=== PATIENT | female | born 1945 | race Hispanic/Latino ===

== ENCOUNTER 2016-07-14 08:33 | Inpatient (IN) | payer MEDICARE ==
[2016-07-07 11:17] LABS: Basophils % (Auto) 0.9 % (0.0-1.8); Eosinophils % (Auto) 1.4 % (0.0-4.3); Hematocrit 37.9 % (30.3-42.9); Hemoglobin 12.4 gm/dl (10.1-14.3); Mean Corpuscular HGB Conc 33 % (30-34); Mean Corpuscular Hemoglobin 29 pg (28-32); Mean Corpuscular Volume 88 fl (79-97); Platelet Count 250 K/mm3 (140-440); Red Blood Count 4.28 M/mm3 (3.65-5.03); Red Cell Distribution Width 14.9 % (13.2-15.2); White Blood Count 6.5 K/mm3 (4.5-11.0)
--- NOTE | 2016-07-07 11:19 | Anesthesia Consultation ---
Anesthesia Consult and Med Hx Date of service: 07/07/16 - Airway Anesthetic Teeth Evaluation: Good ROM Head & Neck: Adequate Mental/Hyoid Distance: Adequate Mallampati Class: Class III Intubation Access Assessment: Possibly Difficult - Pulmonary Exam CTA: Yes - Cardiac Exam Cardiac Exam: RRR - Pre-Operative Health Status ASA Pre-Surgery Classification: ASA3 Proposed Anesthetic Plan: Epidural, IV Sedation, Spinal - Pre-Anesthesia Comment Pre-Anesthesia Comments: cellulitis, arthiritis, nueropathy bilateral feet - Pulmonary Hx Smoking: Yes (QUIT ) Hx Respiratory Symptoms: Yes (cough, no fever ) SOB: Yes - Endocrine Hx Thyroid Disease: Yes Hx Hypothyroidism: Yes - Other Systems Hx Cancer: Yes (HX Breast CA, lumpectomy 2005 ) Hx Obesity: Yes
[2016-07-07 11:33] LABS: Albumin 3.6 g/dL (3.9-5); Bilirubin,Total 0.3 mg/dL (0.1-1.2); Calcium 8.4 mg/dL (8.4-10.2); Chloride 102.3 mmol/L (98-107); Potassium 4.6 mmol/L (3.6-5.0); Total Protein 7.3 g/dL (6.3-8.2)
--- NOTE | 2016-07-13 14:52 | History and Physical Report ---
History of Present Illness Date of examination: 07/13/16 Date of admission: 07/14/16 Chief complaint: Painful limitation of movement right knee, difficulty attending to activities of daily living, been treated symptomatically. I symptoms persisted she is being admitted for elective total knee arthroplasty. Past History Past Medical History: arthritis, hyperthyroidism Medications and Allergies Allergies Allergy/AdvReac Type Severity Reaction Status Date / Time adhesive Allergy Rash Verified 05/09/13 23:30 ceftriaxone sodium Allergy Shortness Verified 05/09/13 23:30 [From Rocephin] of Breath lorazepam [From Ativan] Allergy HALLUCINATI Verified 07/05/16 10:41 ONS vancomycin Allergy Swelling Verified 07/07/16 11:17 Home Medications Medication Instructions Recorded Confirmed Last Taken Type Aspirin [Aspirin BABY CHEW TAB] 81 mg PO DAILY 05/09/13 07/07/16 05/09/13 09:00 History Betamethasone/Propylene Glyc 1 dose TRANSDERMA PRN PRN 05/09/13 07/07/16 09:00 History [Diprolene 0.05%] Celecoxib [Celebrex] 200 mg PO BID 05/09/13 07/07/16 05/09/13 09:00 History Levothyroxine [Synthroid] 0.15 mg PO DAILY 05/09/13 07/07/16 05/08/13 20:00 History Magnesium 250 mg PO BID 05/09/13 07/07/16 05/09/13 09:00 History Potassium Gluconate 55 mg PO BID 05/09/13 07/07/16 05/09/13 09:00 History Pregabalin [Lyrica] 100 mg PO BID 05/09/13 07/07/16 05/09/13 09:00 History Raloxifene HCl [Evista] 60 mg PO QAM 05/09/13 07/07/16 05/09/13 09:00 History Vit C/Ascorbate Ca/Ascorb Sod 500 mg PO QAM 05/09/13 07/07/16 05/09/13 09:00 History [Vitamin C 500 mg/15 ml Liquid] Betamethasone Dipropionate 15 gm TP PRN PRN 07/07/16 07/07/16 Unknown History [Betamethasone Dipropionate 0.05% Cream] Cholecalciferol (Vitamin D3) 2,000 unit PO QDAY 07/07/16 07/07/16 Unknown History [Vitamin D3] Lactobacillus Combination No.8 2 tab PO DAILY 07/07/16 07/07/16 Unknown History [Adult Probiotic] Papaya [Papaya Enzyme] 1 each PO PRN PRN 07/07/16 07/07/16 Unknown History Ropinirole HCl [Requip] 0.5 mg PO BID 07/07/16 07/07/16 Unknown History Travoprost (Benzalkonium) 1 drop INTRAOCULA QPM 07/07/16 07/07/16 Unknown History [Travoprost 0.004% Eye Drop] Active Meds: Active Medications Famotidine (Pepcid) 20 mg PO PREOP NR Stop: 07/14/16 23:59 Lactated Ringer's (Lactated Ringers) 1,000 mls @ 42 mls/hr IV DIRECT ARMANDO Review of Systems All systems: negative Exam - Constitutional Vitals: Temp Pulse Resp BP Pulse Ox 97.5 F L 84 20 150/90 07/07/16 10:45 07/07/16 10:45 07/07/16 10:45 07/07/16 10:45 General appearance: Present: no acute distress, well-nourished - EENT Eyes: Present: PERRL ENT: hearing intact, clear oral mucosa - Neck Neck: Present: supple, normal ROM - Respiratory Respiratory effort: normal Respiratory: bilateral: CTA - Cardiovascular Heart Sounds: Present: S1 & S2. Absent: rub, click - Extremities Extremities: pulses symmetrical, No edema, abnormal (Right knee with a 5 varus , swelling no effusion. Crepitus with range of motion. Collateral ligaments are stable, range of motion flexion 90, extension -3. No calf pain or tenderness, quad strength grade 5, no neurovascular deficit.) Peripheral Pulses: within normal limits - Abdominal General gastrointestinal: Present: soft, non-tender, non-distended, normal bowel sounds Female genitourinary: Present: normal - Integumentary Integumentary: Present: clear, warm, dry - Musculoskeletal Musculoskeletal: gait normal, strength equal bilaterally - Psychiatric Psychiatric: appropriate mood/affect, intact judgment & insight - Neurologic Neurologic: CNII-XII intact, moves all extremities Results - Labs CBC & Chem 7: 07/07/16 10:45 07/07/16 10:45 Assessment and Plan - Patient Problems (1) Degenerative arthritis of right knee Status: Chronic Qualifiers: Osteoarthritis type: primary Qualified Code(s): M17.11 - Unilateral primary osteoarthritis, right knee Plan to address problem: ttotally arthroplasty right knee
[~2016-07-14 08:33] MED LIST: NACL 0.9% IR ONE; NEOSPORIN GU IR ONE; NEURONTIN PO NR; PEPCID PO NR; VANCOMYCIN/NS 1 GM/250 ML 1 GM/250 ML BAG IV NR; VERSED IV NR; WATER FOR IRRIG STERILE IR ONE
[2016-07-14] MEDS: LACTATED RINGERS 1,000 ML IV SCH (09:21)
[2016-07-14] MEDS ORDERED: MARCAINE 0.25% INFILTRATI ONE (09:44)
[2016-07-14] MEDS ORDERED: MARCAINE 0.5% INFILTRATI ONE (10:00)
[2016-07-14] MEDS ORDERED: DIPRIVAN 10 MG/ML IV ONE ×2 (10:17→11:44)
[2016-07-14] MEDS ORDERED: XYLOCAINE MPF 2% ONE ×3 (10:17→11:51)
[2016-07-14] MEDS ORDERED: DECADRON IV ONE (10:30)
[2016-07-14] MEDS ORDERED: VERSED ONE (10:31)
[2016-07-14] MEDS ORDERED: DILAUDID ONE ×2 (10:31→13:15)
[2016-07-14] MEDS ORDERED: NEOSPORIN GU IR ONE (10:52)
[2016-07-14] MEDS ORDERED: NACL 0.9% IR ONE ×2 (10:52)
[2016-07-14] MEDS ORDERED: WATER FOR IRRIG STERILE IR ONE (10:52)
[2016-07-14] MEDS ORDERED: CLEOCIN 600 MG/50 mL 600 MG/50 ML BAG IV NR (11:00)
[2016-07-14] MEDS ORDERED: LEVAQUIN 500MG/100ML 500 MG/100 ML BAG IV NR (11:00)
[2016-07-14] MEDS ORDERED: LACTATED RINGERS 1,000 ML ONE (11:30)
--- NOTE | 2016-07-14 12:03 | Procedure Note ---
Date of procedure: 07/14/16 Pre-op diagnosis: DJD Right knee Post-op diagnosis: same Procedure: Right total knee arthroplasty ([place] , cemented) Anesthesia: GETA, regional Surgeon: FAVIAN MULTANI Estimated blood loss: minimal Pathology: none Condition: stable Disposition: PACU
--- NOTE | 2016-07-14 12:45 | Operative Report ---
PREOPERATIVE DIAGNOSIS: Severe degenerative joint disease, right knee. POSTOPERATIVE DIAGNOSIS: Severe degenerative joint disease, right knee. OPERATIVE PROCEDURE: Right total knee arthroplasty, [place] system, cemented. SURGEON: Eve Huynh MD PLAYGROUND SUPERVISOR: Erendira Milian CSA. ANESTHESIA: Regional block with general sedation. TOURNIQUET TIME: 1 hour 10 minutes. PROCEDURE IN DETAIL: The patient was taken to surgery suite, satisfactory analgesia obtained with general sedation and regional block. Right lower extremity prepped with ChloraPrep, satisfactorily draped. The correct patient, surgical procedures, and sites were confirmed. Tourniquet was inflated to 300 mmHg pressure following exsanguination. Midline incision was made anteriorly. Incision was deepened. Median parapatellar incision was made and the knee joint was entered. Intramedullary alignment system was applied and the distal femur was resected at 5 degree valgus and 9 mm thickness to the condyle. Using the #4 block, anterior, posterior as well as chamfering cuts were made and the remaining osteophytes were then debrided. Trial fitting was carried out using the #4 femur, fit appeared satisfactory. Drill holes were made to the distal end of the femur to allow seating of the femoral peg. After debriding the meniscus, joint capsule was elevated and tibia delivered anteriorly into the wound. Proximal tibia was resected at 9 mm thickness to the lateral tibial plateau. Resection made 90 degrees to the tibial shaft. Tibial surface templated to 4 and with the four block in place, proximal tibia was osteotomized to allow seating of the tibial stem. Osteophytes were then debrided, the PCL was preserved. The patella was then reamed to allow a 27 mm patella, tracking appeared central using the trial component. The trial components were removed. Wound was irrigated to remove any debris using the pulse irrigation system. A 4 tibial baseplate followed by 4 femur and a 27 mm all polyethylene patella was cemented in place. Extruding cement was debrided. Trial reduction again carried out using 9 and 11 mm thick tibial spacers and 11 mm thick tibial spacer appeared giving optimal stability and range of motion. Trial was then exchanged for an 11 mm thick tibial spacer, which was locked in place. Wound was again irrigated, closed in layers in the standard fashion using 0 Vicryl, 2-0 Vicryl and yo. Sterile dressings were applied. At the completion of procedure, counts were accurate. Postoperative range of motion 0-100 degrees and knee appeared stable both in flexion and extension with central tracking of the patella. JOB# [id number] MARIANNEN/CHRIS
[2016-07-14] MEDS ORDERED: TORADOL ONE (13:03)
[2016-07-14] MEDS ORDERED: ZOFRAN IV PRN ×2 (13:16→16:13)
[2016-07-14] MEDS: DILAUDID IV PRN ×4 (13:20→14:30)
--- NOTE | 2016-07-14 14:07 | XRay Report ---
RIGHT KNEE RADIOGRAPHS: INDICATION: Postop total knee replacement. COMPARISON: None similar. FINDINGS: AP and crosstable lateral right knee radiographs demonstrate normal alignment with unremarkable arthroplasty components. Expected postsurgical changes in the patella and surrounding soft tissues, including air. CONCLUSION: Expected postoperative appearance, as described. Thank you for the opportunity to participate in this patient's care.
--- NOTE | 2016-07-14 14:36 | Admit Criteria Form ---
Admission Criteria Documentation: AMBULATORY SURGERY EXCEPTION CRITERIA Ambulatory Surgery Exception Criteria ( Place 'X' for any and all applicable criteria): Surgery or procedure performed on ambulatory basis may require inpatient stay for[A] ANY ONE of the following(1)(2)(3)(4)(5)(6)(7)(8)(9): [X] I. A preoperative situation, condition, or finding that warrants inpatient stay as indicated by ANY ONE of the following: [X] a) Inpatient care needed because of severity of a disease or condition rather than the surgery (eg, severe cardiac or respiratory disease, severe infection) (15) (16 ) (17) (18) [] b) Emergent procedure (eg, angioplasty for acute ischemia)(19) [] c) Complex surgical approach or situation as indicated by ANY ONE of the following(3): [] i) Open approach needed instead of usual endoscopic, transcatheter, or other less invasive procedure [] ii) Difficult approach because of previous operation [] iii) Airway monitoring required after open neck procedures(20)(21) [] iv) Large mass requiring unusually extensive dissection [] v) Additional complicating feature requiring inpatient care (eg, drain management)(22(23): [X] d) Major surgery in a pt with high anesthetic risk as indicated by ANY ONE of the following (2)(3)(5)(7)(8): [X] i) ASA risk class III or higher (severe systemic disease impairing function) [D] [] ii) Advanced age (eg, older than 85 years)(14)(24) [] iii) Symptomatic heart failure(25) [] iv) Symptomatic asthma or COPD(8)(21) [] v) Morbid obesity with hemodynamic or respiratory problems(20)( 21)(26)(27) [] vi) Obstructive sleep apnea(20)(21) [] vii) Former premature infants who are younger than 60 weeks [] viii) High risk for severe postoperative abnormalities (eg, severe postoperative hypocalcemia after parathyroidectomy for severe hyperparathyroidism)(27)( 28) [] ix) Unstable angina(25) [] e) Drug-related risk requiring inpatient stay as indicated by ANY ONE of the following(5)(10)(14)(32)(33) [] i) Procedure requires discontinuing drugs or other therapy (eg , antiarrhythmic medication, antiseizure medication), which necessitates inpatient observation or treatment.(18)(31) [] ii) Major surgery and high risk drug use as indicated by ANY ONE of the following: [] 1) Active abuse of cocaine or similar drug [] 2) Monoamine oxidase inhibitor use [] 3) Other drug identified as posing risk [] f) Inadequate outpatient care situation as indicated by ANY ONE of the following(5)(10)(14)(32)(33) [] i) Patient lives remote from medical facility and procedure has urgent complication potential, and temporary nearby residence cannot be arranged [] ii) Patient will have postprocedure incapacitation and inadequate assistance at home, or alternative level of care cannot be arranged. [] iii) Patient will have long general anesthesia or procedure side effect resolution time, and competent person to stay with patient on first postoperative night at home or alternative level of care cannot be arranged. []iv) Other inadequate outpatient situation that cannot be handled by other means [] II. A perioperative event, condition, or finding that warrants inpatient stay as indicated by ANY ONE of the following (1)(2)(3): [] a) Inadequate physiologic recovery: cardiovascular, respiratory, or hemodynamic status not normal or near preoperative baseline(18) [] b) Hemodynamic instability [] c) Patient not alert with near normal or baseline mental status [] d) Temperature not normal or as expected and not appropriate for outpatient treatment of condition [] e) Ambulatory or appropriate activity level status not yet achieved post procedure [E](34)(35)(36) [] f) Operative site not appropriate (eg, unexpected or excessive drainage or bleeding) [] g) Postoperative effects not resolved or adequately managed (eg, significant pain or vomiting not appropriate for outpatient or next level of care)(10)(12) [] h) Complicating features requiring inpatient care as indicated by ANY ONE of the following(37): [] i) Severe complications of procedure (eg, bowel injury, airway compromise, vascular injury,severe hemorrhage) [] ii) Extensive (eg, dissection far beyond usual scope of procedure ) or prolonged (eg, 120 minutes beyond usual) surgery needed requiring inpatient postoperative care [] iii) Conversion to an open or complex procedure that requires inpatient care (eg, open vs laparoscopic cholecystectomy, abdominal vs vaginal hysterectomy)(38) [] iv) Comorbid condition or test result identified during or post procedure that requires inpatient care (7) [] v) Malignant hyperthermia(30) [] vi) Other complicating feature requiring inpatient care(22)(23) Inpatient stay may be needed until ALL of the following are present (1)(2)(3)(4) (5)(6)(10)(14)(33)(40): []a) Physiologic recovery: cardiovascular, respiratory, and hemodynamic status normal or near preoperative baseline []b) Hemodynamic stability []c) Patient alert, with near normal or baseline mental status []d) Temperature appropriate: patient afebrile or temperature appropriate for outpt treatment of condition []e) Activity level appropriate: ambulatory or appropriate activity level post procedure []f) Operative site appropriate as indicated by ALL of the following: []i) Site dry or with expected drainage []ii) Any blood noted is as expected for procedure. []g) Postoperative effects resolved or managed as indicated by ALL of the following: []i) Pain management appropriate for outpatient (or next level of) care(10) []ii) Minimal nausea and vomiting: if present, successfully treated with oral medication(12) []iii) Headache, dizziness, or drowsiness (if present) are mild. []h) Voiding status acceptable as indicated by ANY ONE of the following: []i) Voiding spontaneously []ii) No voiding but instructions given for follow-up in 6 to 8 hours []iii) Urinary catheter in place, and instructions given for follow-up []i) Complicating features requiring inpatient care manageable at a lower level of care(37) []j) Comorbid conditions manageable at a lower level of care(37) The original [email or web address] content created by [employer] has been revised. The portions of the content which have been revised are identified through the use of italic text or in bold, and [facility] has neither reviewed nor approved the modified material. All other unmodified content is copyright [email or web address]. Please see references footnoted in the original [email or web address] edition 2016 Admission Criteria Met: Yes
--- NOTE | 2016-07-14 15:09 | Progress Note ---
Subjective Date of service: 07/14/16 Principal diagnosis: s/p R total knee replacement. Interval history: Pt had a epidural catheter placed for surgery. After surgery when we tried to pull the catheter there was resistance to pulling the catheter.When the catheter was finally pulled out the tip of the catheter was missing.Will talk to Dr Huynh. Objective - Constitutional Vitals: Vital Signs - 12hr 07/14/16 07/14/16 07/14/16 09:05 09:39 09:42 Temperature 98.6 F Pulse Rate 79 70 75 Respiratory 20 10 L 13 Rate Blood Pressure 177/79 137/45 131/54 O2 Sat by Pulse 93 99 100 Oximetry 07/14/16 07/14/16 07/14/16 09:49 09:54 09:59 Temperature Pulse Rate 73 73 75 Respiratory 14 14 18 Rate Blood Pressure 129/55 118/47 118/66 O2 Sat by Pulse 99 99 99 Oximetry 07/14/16 07/14/16 07/14/16 10:07 10:09 10:15 Temperature Pulse Rate 71 72 70 Respiratory 12 12 14 Rate Blood Pressure 124/64 137/68 136/64 O2 Sat by Pulse 99 99 99 Oximetry 07/14/16 07/14/16 07/14/16 10:19 12:30 12:35 Temperature 97.4 F L Pulse Rate 69 57 L 58 L Respiratory 14 13 14 Rate Blood Pressure 129/67 128/68 128/71 O2 Sat by Pulse 99 97 98 Oximetry 07/14/16 07/14/16 07/14/16 12:40 12:45 12:50 Temperature Pulse Rate 52 L 52 L 51 L Respiratory 12 14 12 Rate Blood Pressure 128/67 116/61 123/66 O2 Sat by Pulse 97 99 98 Oximetry 07/14/16 07/14/16 07/14/16 13:00 13:05 13:13 Temperature 98.6 F Pulse Rate 59 L 79 Respiratory 12 14 20 Rate Blood Pressure 131/68 177/79 O2 Sat by Pulse 97 93 Oximetry 07/14/16 07/14/16 07/14/16 13:15 13:20 13:30 Temperature 97.8 F Pulse Rate 62 53 L Respiratory 10 L 12 12 Rate Blood Pressure 133/69 126/61 O2 Sat by Pulse 97 95 Oximetry 07/14/16 07/14/16 07/14/16 13:35 13:45 13:55 Temperature Pulse Rate 53 L Respiratory 12 10 L 10 L Rate Blood Pressure 139/73 O2 Sat by Pulse 96 Oximetry 07/14/16 07/14/16 07/14/16 14:00 14:30 14:50 Temperature 97.4 F L Pulse Rate 52 L 53 L Respiratory 11 L 10 L 11 L Rate Blood Pressure 136/62 115/63 O2 Sat by Pulse 97 97 Oximetry - Labs CBC & Chem 7: 07/07/16 10:45 07/07/16 10:45
--- NOTE | 2016-07-14 15:13 | Post Anesthesia Evaluation ---
- Post Anesthesia Evaluation Patient Participated: No Airway Patent: Yes Stable Respiratory Function: Yes Nausea/Vomiting: No Temp > 96.8F: Yes Pain Manageable: Yes Adequeate Hydration: Yes Anesthesia Complications: Yes (Tip of the epidural catheter missing after catheter pulled.) Block Receding Appropriately: Yes
--- NOTE | 2016-07-14 15:46 | Progress Note ---
Subjective Principal diagnosis: s/p R total knee replacement. Interval history: iI decided to leave the tip of the catheter because the risk is minimal compared torisk of exploring is high. Objective - Constitutional Vitals: Vital Signs - 12hr 07/14/16 07/14/16 07/14/16 09:05 09:39 09:42 Temperature 98.6 F Pulse Rate 79 70 75 Respiratory 20 10 L 13 Rate Blood Pressure 177/79 137/45 131/54 O2 Sat by Pulse 93 99 100 Oximetry 07/14/16 07/14/16 07/14/16 09:49 09:54 09:59 Temperature Pulse Rate 73 73 75 Respiratory 14 14 18 Rate Blood Pressure 129/55 118/47 118/66 O2 Sat by Pulse 99 99 99 Oximetry 07/14/16 07/14/16 07/14/16 10:07 10:09 10:15 Temperature Pulse Rate 71 72 70 Respiratory 12 12 14 Rate Blood Pressure 124/64 137/68 136/64 O2 Sat by Pulse 99 99 99 Oximetry 07/14/16 07/14/16 07/14/16 10:19 12:30 12:35 Temperature 97.4 F L Pulse Rate 69 57 L 58 L Respiratory 14 13 14 Rate Blood Pressure 129/67 128/68 128/71 O2 Sat by Pulse 99 97 98 Oximetry 07/14/16 07/14/16 07/14/16 12:40 12:45 12:50 Temperature Pulse Rate 52 L 52 L 51 L Respiratory 12 14 12 Rate Blood Pressure 128/67 116/61 123/66 O2 Sat by Pulse 97 99 98 Oximetry 07/14/16 07/14/16 07/14/16 13:00 13:05 13:13 Temperature 98.6 F Pulse Rate 59 L 79 Respiratory 12 14 20 Rate Blood Pressure 131/68 177/79 O2 Sat by Pulse 97 93 Oximetry 07/14/16 07/14/16 07/14/16 13:15 13:20 13:30 Temperature 97.8 F Pulse Rate 62 53 L Respiratory 10 L 12 12 Rate Blood Pressure 133/69 126/61 O2 Sat by Pulse 97 95 Oximetry 07/14/16 07/14/16 07/14/16 13:35 13:45 13:55 Temperature Pulse Rate 53 L Respiratory 12 10 L 10 L Rate Blood Pressure 139/73 O2 Sat by Pulse 96 Oximetry 02/07/14/16 07/14/16 14:00 14:30 14:50 Temperature 97.4 F L Pulse Rate 52 L 53 L Respiratory 11 L 10 L 11 L Rate Blood Pressure 136/62 115/63 O2 Sat by Pulse 97 97 Oximetry - Labs CBC & Chem 7: 07/07/16 10:45 07/07/16 10:45
[2016-07-14] MEDS ORDERED: MORPHINE IV PRN ×2 (16:13)
[2016-07-14] MEDS ORDERED: TYLENOL PO PRN (16:13)
[2016-07-14] MEDS ORDERED: PHENERGAN PR PRN (16:13)
[2016-07-14] MEDS ORDERED: SODIUM CHLORIDE FLUSH SYRINGE 10 ML IV PRN (16:13)
[2016-07-14] MEDS ORDERED: TORADOL IV PRN (16:13)
[2016-07-14] MEDS ORDERED: MILK OF MAGNESIA PO PRN (16:13)
[2016-07-14] MEDS ORDERED: AMBIEN PO PRN (16:13)
[2016-07-14] MEDS: CLEOCIN 600 MG/50 mL 600 MG/50 ML BAG IV SCH (17:20)
[2016-07-14] MEDS: NACL 0.9% 1000 ML 1,000 ML IV SCH (17:22)
[2016-07-14] MEDS ORDERED: NON-FORMULARY (Travoprost (Benzalkonium) [Travoprost 0.004% Eye Drop] 1 DROP) INTRAOCULA SCH (18:00)
[2016-07-14] MEDS: REQUIP PO SCH (21:59)
[2016-07-14] MEDS ORDERED: MAG-OX PO SCH (22:00)
[2016-07-14] MEDS: LYRICA PO SCH ×2 (22:00)
[2016-07-14] MEDS ORDERED: REQUIP PO SCH (22:00)
[2016-07-14] MEDS ORDERED: POTASSIUM GLUCONATE PO SCH (22:00)
[2016-07-14] MEDS ORDERED: NON-FORMULARY (Pregabalin [Lyrica] 100 MG) PO SCH (22:00)
[2016-07-14] MEDS ORDERED: MAGNESIUM 250 MG PO SCH (22:00)
[2016-07-14] MEDS: COLACE PO SCH (22:00)
[2016-07-15] MEDS: CLEOCIN 600 MG/50 mL 600 MG/50 ML BAG IV SCH ×2 (03:54→09:54)
[2016-07-15] MEDS: XALATAN 0.005% OU SCH ×2 (04:09→18:15)
[2016-07-15] MEDS: LACTATED RINGERS 1,000 ML IV SCH (06:24)
[2016-07-15] MEDS: OxyCONTIN PO SCH ×2 (06:25→22:40)
[2016-07-15] MEDS: SYNTHROID PO SCH (06:26)
--- NOTE | 2016-07-15 07:48 | Progress Note ---
Assessment and Plan alerty orientated in NAD, mild pain chest clesar, soft abdomen, neuro intact Wound Ok Doing well after TKR OOB Subjective Date of service: 07/15/16 Principal diagnosis: s/p R total knee replacement. Objective Vital signs: Vital Signs - 12hr 07/14/16 07/15/16 23:10 03:45 Temperature 97.6 F 97.4 F L Pulse Rate [ 56 L 59 L From Monitor] Respiratory 20 20 Rate Blood Pressure 126/59 117/59 [Left Arm] O2 Sat by Pulse 97 98 Oximetry - Labs CBC & BMP: 07/07/16 10:45 07/07/16 10:45
[2016-07-15] MEDS: THERAGRAN Tab PO SCH (09:51)
[2016-07-15] MEDS: LYRICA PO SCH ×4 (09:51→23:32)
[2016-07-15] MEDS: VITAMIN D3 PO SCH (09:51)
[2016-07-15] MEDS: COLACE PO SCH ×2 (09:52→22:40)
[2016-07-15] MEDS: LOVENOX SUB-Q SCH (09:53)
--- NOTE | 2016-07-15 09:59 | Consultation ---
History of Present Illness - Reason for Consult Consult date: 07/15/16 management of medical conditions - History of Present Illness 70-year-old morbidly obese white female with history of peripheral neuropathy, hypothyroidism, restless leg syndrome and breast cancer in remission is status post right total knee arthroplasty. She is awake alert and oriented and not in any distress. She says her pain is well-controlled. Presently offers no specific complaints except neuropathy in the feet. Past History Past Medical History: arthritis (in the right shoulder), cancer (right breast in 2005), hypothyroidism, other (restless leg syndrome and peripheral neuropathy ) Past Surgical History: appendectomy, cholecystectomy, mastectomy (right lumpectomy), total hip replacement (right) Social history: no significant social history Family history: no significant family history Medications and Allergies Allergies Allergy/AdvReac Type Severity Reaction Status Date / Time adhesive Allergy Rash Verified 05/09/13 23:30 ceftriaxone sodium Allergy Shortness Verified 05/09/13 23:30 [From Rocephin] of Breath lorazepam [From Ativan] Allergy HALLUCINATI Verified 07/05/16 10:41 ONS vancomycin Allergy Swelling Verified 07/07/16 11:17 Home Medications Medication Instructions Recorded Confirmed Last Taken Type Aspirin [Aspirin BABY CHEW TAB] 81 mg PO DAILY 05/09/13 07/14/16 07/07/16 History Betamethasone/Propylene Glyc 1 dose TRANSDERMA PRN PRN 05/09/13 07/14/16 History [Diprolene 0.05%] Celecoxib [Celebrex] 200 mg PO BID 05/09/13 07/14/16 07/13/16 History Levothyroxine [Synthroid] 0.15 mg PO DAILY 05/09/13 07/14/16 07/13/16 History Magnesium 250 mg PO BID 05/09/13 07/14/16 07/13/16 History Potassium Gluconate 55 mg PO BID 05/09/13 07/14/16 07/13/16 History Pregabalin [Lyrica] 100 mg PO BID 05/09/13 07/14/16 07/13/16 History Raloxifene HCl [Evista] 60 mg PO QAM 05/09/13 07/14/16 07/13/16 History Vit C/Ascorbate Ca/Ascorb Sod 500 mg PO QAM 05/09/13 07/14/1617 History [Vitamin C 500 mg/15 ml Liquid] Betamethasone Dipropionate 15 gm TP PRN PRN 07/07/16 07/14/16 07/13/16 History [Betamethasone Dipropionate 0.05% Cream] Cholecalciferol (Vitamin D3) 2,000 unit PO QDAY 07/07/16 07/14/16 07/13/16 History [Vitamin D3] Lactobacillus Combination No.8 2 tab PO DAILY 07/07/16 07/14/16 07/13/16 History [Adult Probiotic] Papaya [Papaya Enzyme] 1 each PO PRN PRN 07/07/16 07/14/16 07/13/16 History Ropinirole HCl [Requip] 0.5 mg PO BID 07/07/16 07/14/16 07/13/16 History Travoprost (Benzalkonium) 1 drop INTRAOCULA QPM 07/07/16 07/14/16 07/13/16 History [Travoprost 0.004% Eye Drop] Active Meds: Active Medications Acetaminophen (Tylenol) 650 mg PO Q4H PRN PRN Reason: Pain MILD(1-3)/Fever >100.5/JOSHUA Ascorbic Acid (Vitamin C) 500 mg PO QDAY [facility] Celecoxib (Celebrex) 100 mg PO BID [facility] Last Admin: 07/15/16 09:52 Dose: 100 mg Cholecalciferol (Vitamin D3) 2,000 unit PO QDAY [facility] Last Admin: 07/15/16 09:51 Dose: 1,000 unit Docusate Sodium (Colace) 100 mg PO BID [facility] Last Admin: 07/15/16 09:52 Dose: 100 mg Enoxaparin Sodium (Lovenox) 40 mg SUB-Q QDAY [facility] Last Admin: 07/15/16 09:53 Dose: 40 mg Lactated Ringer's (Lactated Ringers) 1,000 mls @ 42 mls/hr IV DIRECT [facility] Last Admin: 07/15/16 06:24 Dose: 42 mls/hr Clindamycin HCl (Cleocin 600 Mg/50 Ml) 600 mg in 50 mls @ 100 mls/hr IV Q8H [facility] PRN Reason: Protocol Stop: 07/15/16 18:00 Last Admin: 07/15/16 09:54 Dose: 100 mls/hr Levofloxacin/Dextrose (Levaquin 500mg/100ml) 500 mg in 100 mls @ 100 mls/hr IV Q24HR [facility] PRN Reason: Protocol Stop: 07/16/16 09:59 Sodium Chloride (Nacl 0.9% 1000 Ml) 1,000 mls @ 75 mls/hr IV DIRECT [facility] Last Admin: 07/14/16 17:22 Dose: 75 mls/hr Ketorolac Tromethamine (Toradol) 30 mg IV Q6H PRN PRN Reason: Pain, Moderate (4-6) Stop: 07/19/16 16:12 Latanoprost (Xalatan 0.005%) 1 drops OU QPM [facility] Last Admin: 07/15/16 04:09 Dose: Not Given Levothyroxine Sodium (Synthroid) 150 mcg PO DAILY@0600 [facility] Last Admin: 07/15/16 06:26 Dose: 150 mcg Magnesium Hydroxide (Milk Of Magnesia) 30 ml PO Q4H PRN PRN Reason: Constipation Morphine Sulfate (Morphine) 4 mg IV Q4H PRN PRN Reason: Pain , Severe (7-10) Morphine Sulfate (Morphine) 2 mg IV Q4H PRN PRN Reason: Pain, Moderate (4-6) Last Admin: 07/15/16 04:13 Dose: 2 mg Multivitamins (Theragran Tab) 1 each PO QDAY [facility] Last Admin: 07/15/16 09:51 Dose: 1 each Ondansetron HCl (Zofran) 4 mg IV Q8H PRN PRN Reason: Nausea And Vomiting Oxycodone HCl (Oxycontin) 10 mg PO Q12HR [facility] Last Admin: 07/15/16 06:25 Dose: 10 mg Oxycodone/Acetaminophen (Percocet 5/325) 1 tab PO Q6H PRN PRN Reason: Pain, Moderate (4-6) Pregabalin (Lyrica) 75 mg PO BID [facility] Last Admin: 07/15/16 09:52 Dose: 75 mg Pregabalin (Lyrica) 25 mg PO BID [facility] Last Admin: 07/15/16 09:51 Dose: 25 mg Promethazine HCl (Phenergan) 25 mg AL Q6H PRN PRN Reason: Nausea And Vomiting Ropinirole HCl (Requip) 0.5 mg PO BID [facility] Last Admin: 07/14/16 21:59 Dose: 0.5 mg Sodium Chloride (Sodium Chloride Flush Syringe 10 Ml) 10 ml IV PRN PRN PRN Reason: LINE FLUSH Zolpidem Tartrate (Ambien) 5 mg PO QHS PRN PRN Reason: Sleep Last Admin: 07/14/16 22:09 Dose: 5 mg Review of Systems Constitutional: no weight loss, no weight gain, no fever, no chills, no fatigue , no weakness Ears, nose, mouth and throat: no ear pain, no tinnitis, no nasal congestion, no sore throat, no headache, no vertigo Cardiovascular: no chest pain, no orthopnea, no palpitations, no syncope, no lightheadedness, no shortness of breath, no high blood pressure Respiratory: no cough, no shortness of breath Gastrointestinal: no abdominal pain, no nausea, no vomiting, no diarrhea, no constipation, no melena Genitourinary Female: no pelvic pain, no flank pain, no urinary frequency, no stress incontinence, no urge incontinence Menstruation: postmenopausal Rectal: no pain Musculoskeletal: arthritis (chronic right shoulder pain) Integumentary: rash (on the left arm and forearm associated with itching) Neurological: parathesias (in the feet), numbness, no seizures, no syncope, no ataxia, no headaches Psychiatric: no anxiety, no depression Endocrine: no excessive thirst, no polydipsia, no polyuria Exam - Constitutional Vitals: Temp Pulse Resp BP Pulse Ox 97.4 F L 59 L 20 117/59 98 07/15/16 03:45 07/15/16 03:45 07/15/16 03:45 07/15/16 03:45 07/15/16 03:45 General appearance: Present: no acute distress, well-nourished, obese - EENT Eyes: Present: PERRL, EOM intact ENT: hearing intact, clear oral mucosa, no thrush - Neck Neck: Present: supple, normal ROM. Absent: masses or JVD - Respiratory Respiratory effort: normal Respiratory: bilateral: CTA, negative: rales, rhonchi, wheezing - Cardiovascular Rhythm: regular Heart Sounds: Present: S1 & S2 - Extremities Extremities: No edema - Abdominal General gastrointestinal: Present: soft, non-tender. Absent: hepatomegaly, splenomegaly - Rectal Rectal Exam: deferred - Integumentary Integumentary: Present: rash (erythematous maculopapular rash with dry skin on the left arm and forearm and left upper neck behind the ear) - Musculoskeletal Musculoskeletal: strength equal bilaterally - Psychiatric Psychiatric: appropriate mood/affect, cooperative - Neurologic Neurologic: CNII-XII intact, no focal deficits Results - Labs CBC & Chem 7: 07/07/16 10:45 07/07/16 10:45 Assessment and Plan - Patient Problems (1) Hypothyroidism Current Visit: Yes Status: Chronic Qualifiers: Hypothyroidism type: H Plan to address problem: Continue Synthroid at 150 g (2) Morbid obesity due to excess calories Current Visit: Yes Status: Chronic Plan to address problem: Nutrition counseling (3) Restless leg syndrome Current Visit: Yes Status: Chronic Plan to address problem: Patient says she takes Requip Will restart the medication (4) Peripheral neuropathy due to chemotherapy Current Visit: Yes Status: Chronic Plan to address problem: She says she takes Lyrica I will restart the medication (5) Degenerative arthritis of right knee Current Visit: Yes Status: Chronic Qualifiers: Osteoarthritis type: primary Qualified Code(s): M17.11 - Unilateral primary osteoarthritis, right knee Plan to address problem: Status post surgery Continue as per recommendations of orthopedic surgery We will check serum electrolytes and hemoglobin and hematocrit tomorrow
[2016-07-15] MEDS ORDERED: ASCORBATE CA PO SCH (10:00)
[2016-07-15] MEDS ORDERED: NON-FORMULARY (Cholecalciferol (Vitamin D3) [Vitamin D3] 2,000 UNIT) PO SCH (10:00)
[2016-07-15] MEDS ORDERED: LACTOBACILLUS COMBINATION NO 8 PO SCH (10:00)
[2016-07-15] MEDS ORDERED: LEVAQUIN 500MG/100ML 500 MG/100 ML BAG IV SCH (10:00)
[2016-07-15] MEDS ORDERED: VIT C PO SCH (10:00)
[2016-07-15] MEDS ORDERED: LEVOTHYROXINE 0.15 MG PO SCH (10:00)
[2016-07-15] MEDS ORDERED: ASCORB SOD PO SCH (10:00)
[2016-07-15] MEDS: REQUIP PO SCH ×2 (10:06→23:32)
[2016-07-15] MEDS: NACL 0.9% 1000 ML 1,000 ML IV SCH (17:21)
[2016-07-15] MEDS: KENALOG TP SCH ×2 (18:11→23:33)
[2016-07-15] MEDS: VITAMIN C PO SCH (18:14)
[2016-07-16 05:01] LABS: Hematocrit 28.6 % (30.3-42.9); Hemoglobin 9.4 gm/dl (10.1-14.3)
[2016-07-16 05:17] LABS: BUN/Creatinine Ratio 18.75; Calcium 7.6 mg/dL (8.4-10.2); Chloride 102.2 mmol/L (98-107); Potassium 4.5 mmol/L (3.6-5.0)
[2016-07-16] MEDS: SYNTHROID PO SCH (06:26)
--- NOTE | 2016-07-16 08:34 | Progress Note ---
Assessment and Plan - Patient Problems (1) Degenerative arthritis of right knee Status: Chronic Qualifiers: Osteoarthritis type: primary Qualified Code(s): M17.11 - Unilateral primary osteoarthritis, right knee Subjective Date of service: 07/16/16 Principal diagnosis: s/p R total knee replacement. Interval history: . Totally arthroplasty, doing well. Are to bend and able to bear weight fully. No evidence of DVT. Plan discharge to [facility]/SNF when bed available, followup in the office in 2 weeks. Saravanan were removed by 10. Today, weightbearing as tolerated, aspirin for DVT prophylaxis. Objective Vital signs: Vital Signs - 12hr 07/15/16 07/15/16 20:45 22:58 Temperature 98.5 F Pulse Rate [ 75 From Monitor] Respiratory 20 Rate Blood Pressure 146/70 [Left Arm] O2 Sat by Pulse 96 96 Oximetry - Labs CBC & BMP: 07/16/16 04:35 07/16/16 04:35 Labs: Abnormal lab results 07/16/16 07/16/16 Range/Units 04:35 04:35 Hgb 9.4 L (10.1-14.3) gm/dl Hct 28.6 L (30.3-42.9) % BUN 30 H (7-17) mg/dL Creatinine 1.6 H (0.7-1.2) mg/dL Calcium 7.6 L (8.4-10.2) mg/dL
--- NOTE | 2016-07-16 08:35 | Discharge Summary ---
Providers - Providers Date of Admission: 07/14/16 08:33 Date of discharge: 07/17/16 Attending physician: FAVIAN MULTANI 07/14/16 00:01 Consult to Case Management [CONS] Routine Services Needed at Discharge: DME Equipment Notified:: yes Comment:: order given to Cm Additional Physician Instructions: Patient requests halfway and rehab facility placement Consult to Physician [CONS] Routine Consulting Provider: ROSSY JUAREZ Reason For Exam: post op medical care Place consult to:: Dr Dodd Notified:: yes Time called:: 08:30 Comment:: called ex [id number] Physical Therapy Evaluation and Treat [CONS] Routine Comment: Reason For Exam: s/p RT total knee Mode of Transport?: Wheelchair Weight bearing status?: Partial wt bearing Assistive devices?: Yes If so list: Walker Primary care physician: JAUN BEAR JR Hospitalization Reason for admission: DJD of right knee Condition: Good Procedures: total knee arthroplasty, cemented, [place]. Hospital course: uneventful, no complications Disposition: [place] [facility] - Discharge Diagnoses (1) Degenerative arthritis of right knee Status: Chronic Qualifiers: Osteoarthritis type: primary Qualified Code(s): M17.11 - Unilateral primary osteoarthritis, right knee Core Measure Documentation - Palliative Care Palliative Care/ Comfort Measures: Not Applicable - Core Measures Any of the following diagnoses?: none Exam - Constitutional Vitals: Temp Pulse Resp BP Pulse Ox 98.5 F 75 20 146/70 96 07/15/16 22:58 07/15/16 22:58 07/15/16 22:58 07/15/16 22:58 07/15/16 22:58 Plan Activity: no driving until cleared by PCP, up only with assistance, fall precautions Weight Bearing Status: Weight Bear as Tolerated Diet: regular Wound: per your surgeon's advice Durable Medical Equipment Needed Upon Discharge: Walker-Rolling, Bedside commode -elevated Follow up with: JAUN BEAR JR, MD [Primary Care Provider] - 7 Days FAVIAN MULTANI MD [Staff Physician] - 7 Days
[2016-07-16] MEDS: LOVENOX SUB-Q SCH (09:11)
[2016-07-16] MEDS: VITAMIN D3 PO SCH (09:12)
[2016-07-16] MEDS: THERAGRAN Tab PO SCH (09:12)
[2016-07-16] MEDS: REQUIP PO SCH ×2 (09:12→22:25)
[2016-07-16] MEDS: COLACE PO SCH ×2 (09:13→22:24)
[2016-07-16] MEDS: LYRICA PO SCH ×4 (09:13→22:25)
[2016-07-16] MEDS: OxyCONTIN PO SCH ×2 (09:14→22:24)
[2016-07-16] MEDS: PERCOCET 5/325 PO PRN (13:10)
--- NOTE | 2016-07-16 17:35 | Progress Note ---
Assessment and Plan - Patient Problems (1) Degenerative arthritis of right knee Current Visit: Yes Status: Chronic Qualifiers: Osteoarthritis type: primary Qualified Code(s): M17.11 - Unilateral primary osteoarthritis, right knee Plan to address problem: Management per orthopedics continue pain meds (2) Hypothyroidism Current Visit: Yes Status: Chronic Qualifiers: Hypothyroidism type: H Plan to address problem: Follow TSH. Continue Synthroid 150 g (3) Morbid obesity due to excess calories Current Visit: Yes Status: Chronic Plan to address problem: Patient encouraged to eat a proper diet and start a form of exercise once the knee is better (4) Restless leg syndrome Current Visit: Yes Status: Chronic Plan to address problem: Patient still takes Requip History Interval history: Patient lying in bed state that she feels okay Hospitalist Physical - Constitutional Vitals: Temp Pulse Resp BP Pulse Ox 98.1 F 70 16 106/54 98 07/16/16 16:30 07/16/16 16:30 07/16/16 16:30 07/16/16 16:30 07/16/16 16:30 General appearance: Present: no acute distress, well-nourished, obese - EENT Eyes: Present: PERRL, EOM intact ENT: hearing intact, clear oral mucosa - Neck Neck: Present: supple, normal ROM - Respiratory Respiratory effort: normal Respiratory: bilateral: CTA - Cardiovascular Rhythm: regular Heart Sounds: Present: S1 & S2 - Extremities Extremity abnormal: tenderness, other (right knee tenderness and swelling) - Abdominal General gastrointestinal: soft, non-tender, non-distended, normal bowel sounds - Psychiatric Psychiatric: appropriate mood/affect, intact judgment & insight - Neurologic Neurologic: CNII-XII intact, moves all extremities Results - Labs CBC & Chem 7: 07/16/16 04:35 07/16/16 04:35 Labs: Laboratory Last Values WBC 6.5 K/mm3 (4.5-11.0) 07/07/16 10:45 RBC 4.28 M/mm3 (3.65-5.03) 07/07/16 10:45 Hgb 9.4 gm/dl (10.1-14.3) L 07/16/16 04:35 Hct 28.6 % (30.3-42.9) L 07/16/16 04:35 MCV 88 fl (79-97) 07/07/16 10:45 MCH 29 pg (28-32) 07/07/16 10:45 MCHC 33 % (30-34) 07/07/16 10:45 RDW 14.9 % (13.2-15.2) 07/07/16 10:45 Plt Count 250 K/mm3 (140-440) 07/07/16 10:45 Lymph % (Auto) 15.4 % (13.4-35.0) 07/07/16 10:45 [place] % (Auto) 7.4 % (0.0-7.3) H 07/07/16 10:45 Eos % (Auto) 1.4 % (0.0-4.3) 07/07/16 10:45 Baso % (Auto) 0.9 % (0.0-1.8) 07/07/16 10:45 Lymph # 1.0 K/mm3 (1.2-5.4) L 07/07/16 10:45 [place] # 0.5 K/mm3 (0.0-0.8) 07/07/16 10:45 Eos # 0.1 K/mm3 (0.0-0.4) 07/07/16 10:45 Baso # 0.1 K/mm3 (0.0-0.1) 07/07/16 10:45 Seg Neutrophils % 74.9 % (40.0-70.0) H 07/07/16 10:45 Seg Neutrophils # 4.8 K/mm3 (1.8-7.7) 07/07/16 10:45 Sodium 138 mmol/L (137-145) 07/16/16 04:35 Potassium 4.5 mmol/L (3.6-5.0) 07/16/16 04:35 Chloride 102.2 mmol/L (98-107) 07/16/16 04:35 Carbon Dioxide 24 mmol/L (22-30) 07/16/16 04:35 Anion Gap 16 mmol/L 07/16/16 04:35 BUN 30 mg/dL (7-17) H 07/16/16 04:35 Creatinine 1.6 mg/dL (0.7-1.2) H 07/16/16 04:35 Estimated GFR 32 ml/min 07/16/16 04:35 BUN/Creatinine Ratio 18.75 % 07/16/16 04:35 Glucose 99 mg/dL (65-100) 07/16/16 04:35 Calcium 7.6 mg/dL (8.4-10.2) L 07/16/16 04:35 Total Bilirubin 0.3 mg/dL (0.1-1.2) 07/07/16 10:45 AST 20 units/L (5-40) 07/07/16 10:45 ALT 16 units/L (7-56) 07/07/16 10:45 Alkaline Phosphatase 132 units/L (35-129) H 07/07/16 10:45 Total Protein 7.3 g/dL (6.3-8.2) 07/07/16 10:45 Albumin 3.6 g/dL (3.9-5) L 07/07/16 10:45 Albumin/Globulin Ratio 1.0 % 07/07/16 10:45
[2016-07-16] MEDS: KENALOG TP SCH ×2 (17:43→22:00)
[2016-07-16] MEDS: VITAMIN C PO SCH (17:43)
[2016-07-16] MEDS: XALATAN 0.005% OU SCH (17:44)
[2016-07-17] MEDS: OxyCONTIN PO SCH ×2 (01:48→10:30)
[2016-07-17] MEDS: CLEOCIN 600 MG/50 mL 600 MG/50 ML BAG IV SCH (01:49)
[2016-07-17] MEDS: PERCOCET 5/325 PO PRN ×2 (04:39→12:25)
[2016-07-17] MEDS: SYNTHROID PO SCH (05:27)
[2016-07-17 08:39] VITALS: BP 126/59
[2016-07-17] MEDS: COLACE PO SCH (10:30)
[2016-07-17] MEDS: KENALOG TP SCH (10:30)
[2016-07-17] MEDS: LYRICA PO SCH ×2 (12:24→12:25)
[2016-07-17] MEDS: LOVENOX SUB-Q SCH (12:27)
[2016-07-17] MEDS: REQUIP PO SCH (12:41)
[2016-07-17] MEDS: THERAGRAN Tab PO SCH (12:41)
[2016-07-17] MEDS: VITAMIN D3 PO SCH (12:42)
[2016-07-17] MEDS: VITAMIN C PO SCH (12:42)
== END 2016-07-17 14:29 | DRG 469 ==
LOC: 4A 08:33 → 2B-SURG 18:13
PROVIDERS: ADMIT Orthopaedic Surgery; ATTEND Orthopaedic Surgery
PROC: 0SRC0J9 Replacement of Right Knee Joint with Synthetic Substitute, Cemented, Open Approach (ICD-10-PCS; principal; 2016-07-14)
DX: M17.11 Unilateral primary osteoarthritis, right knee (principal); N17.0 Acute kidney failure with tubular necrosis; Z68.43 Body mass index [BMI] 50.0-59.9, adult; E03.9 Hypothyroidism, unspecified; E66.01 Morbid (severe) obesity due to excess calories; G62.9 Polyneuropathy, unspecified; G25.81 Restless legs syndrome; Z96.649 Presence of unspecified artificial hip joint; Z85.3 Personal history of malignant neoplasm of breast; Z90.49 Acquired absence of other specified parts of digestive tract; Z90.11 Acquired absence of right breast and nipple
CPT/HCPCS: 36415; 62324; 80048; 80053; 85014; 85018; 85025; 88305; A4217; C1776; J1100; J1170; J1650; J1885; J1956; J2250; J2270; J2405; J2704; J7030; J7120